=== PATIENT | male | born 1975 | race Caucasian/White ===

== ENCOUNTER 2023-10-07 12:33 | Emergency (ER) | payer OTHER, SELFPAY ==
[2023-10-07 13:06] VITALS: BP 108/69; PULSE 68; RESP 18; TEMP 36.4; O2SAT 98; BMI 29.0
--- NOTE | 2023-10-07 13:23 | ED_ITS ---
HPI - General Adult General Chief complaint: Abdominal Pain Stated complaint: Abdominal pain Time Seen by Provider: 10/07/23 12:38 History of Present Illness HPI narrative: Patient here with periumbilical, dull abdominal pain since Saturday. Poor appetite, cramping, nauseous. No previous abdominal surgeries. Last food intake was 3 pm and liquid was 8 am . 48-year-old man presenting to emergency department with complaint of mid abdominal pain over the last couple of days. Seems to have started about an hour after he ate some Singaporean food. Hit by intense and burning cramping pain he gestures to the upper abdomen/epigastrium. Doubled over with this intensity. Did vomit multiple times. No hematemesis noted. Pulses intense discomfort lasted about 10 minutes. Pain has continued however with persistent burning across the upper abdomen. Yesterday did have some loose stool not actually diarrheal. Is nauseated currently. Abdomen is generally little distended or bloated. No fever. No rashes. Spouse is here quite concerned about potential gallbladder issue. Has never had any food intolerance is in minimal symptoms of heartburn. No family history gallbladder disease that he knows of. Did use to drink alcohol but he has quit some years ago and this seems to have improved his symptoms of dyspepsia as well. Incidentally has noted increased difficulty with urination over the last couple of years. Up multiple times at night. Takes him a while to urinate as well. Spouse is quite concerned regarding his prostate. Wondering if this can be assessed today. Does have an appointment on the , 10 days from now with primary care provider for this matter. Related Data Home Medications Medication Instructions Recorded Confirmed chlorthalidone 25 mg tablet 25 mg PO DAILY PRN 10/07/23 10/07/23 dextroamphetamine-amphetamine 10 1 tab PO DAILY 10/07/23 10/07/23 mg tablet lisinopril 20 mg tablet 20 mg PO DAILY 10/07/23 10/07/23 Previous Rx's Medication Instructions Recorded hydrocodone 5 mg-acetaminophen 325 1 - 2 tab PO Q4-6H PRN pain #12 10/07/23 mg tablet tabs omeprazole 40 mg capsule,delayed 40 mg PO DAILY #15 caps 10/07/23 release ondansetron 4 mg disintegrating 4 mg PO Q4-6H PRN nausea and 10/07/23 tablet vomiting #12 tabs Allergies Allergy/AdvReac Type Severity Reaction Status Date / Time No Known Drug Allergies Allergy Verified 10/07/23 13:02 Review of Systems Status of ROS: Reports: 6 or more systems reviewed and unremarkable except as noted in History and below [facility] Social History Smoking Status: Unknown if ever smoked Second hand tobacco smoke exposure: No Exam Narrative: Exam Narrative: Seems little uncomfortable. He is pleasant. Breathing easily. NAD otherwise. Oropharynx is moist. Lungs are clear. Heart in regular rate and rhythm. Distant. Abdomen present but diminished bowel sounds. Diffusely mildly tender more so though in the epigastrium not exclusive to the right upper quadrant. Without peritoneal signs. Extremities are well perfused. Lower extremities without edema. Const: Vital Signs, click to edit/add: Vital Signs - 24 hr 10/07/23 13:06 Temperature 97.6 F Pulse Rate [Pulse Oximeter] 68 Respiratory Rate 18 Blood Pressure [Ri ght Upper Arm] 108/69 Pulse Oximetry 98 Oxygen Delivery Me thod Room Air Documenting provider has reviewed patient's vital signs: yes Course Vital Signs Vital signs: Initial Vital Signs Temperature 97.6 F 10/07/23 13:06 Temperature Source Temporal Artery Scan 10/07/23 13:06 Pulse Rate 68 10/07/23 13:06 Pulse Rhythm Regular 10/07/23 13:06 Respiratory Rate 18 10/07/23 13:06 Blood Pressure 108/69 10/07/23 13:06 Blood Pressure Mean 82 10/07/23 13:06 Blood Pressure Position Sitting 10/07/23 13:06 Pulse Oximetry 98 10/07/23 13:06 Oxygen Delivery Method Room Air 10/07/23 13:06 Vital Signs Temperature 97.6 F 10/07/23 13:06 Pulse Rate 68 10/07/23 13:06 Respiratory Rate 18 10/07/23 13:06 Blood Pressure 108/69 10/07/23 13:06 Pulse Oximetry 98 10/07/23 13:06 Oxygen Delivery Method Room Air 10/07/23 13:06 Temperature 97.6 F 10/07/23 13:06 Pulse Rate 68 10/07/23 13:06 Respiratory Rate 18 10/07/23 13:06 Blood Pressure 108/69 10/07/23 13:06 Pulse Oximetry 98 10/07/23 13:06 Oxygen Delivery Method Room Air 10/07/23 13:06 Medications Administered Medications: Discontinued Medications Generic Name Dose Route Start Last Admin Trade Name Elieser PRN Reason Stop Dose Admin Sodium Chloride 1,000 mls @ 1,000 mls/hr 10/07/23 13:37 10/07/23 15:40 0.9 % Sodium Chloride 1000 Ml IV 10/07/23 14:36 Not Given .Q1H ONE Lidocaine HCl 7.5 ml 10/07/23 13:46 10/07/23 14:00 Lidocaine Hcl 4 % Top Soln 50 Ml Bottle PO 10/07/23 13:47 7.5 ml ONCE ONE Administration Lidocaine/Aluminum/Magnesium/Simeth 30 ml 10/07/23 13:46 10/07/23 14:00 Mag Hydrox/Aluminum Hyd/Simeth 30 Ml Oral.Susp PO 10/07/23 13:47 30 ml ONCE ONE Administration Ondansetron HCl 4 mg 10/07/23 13:37 10/07/23 15:40 Ondansetron 2 Mg/Ml Inj IVP 10/07/23 13:38 Not Given ONCE ONE Ondansetron HCl 4 mg 10/07/23 15:31 10/07/23 15:39 Ondansetron Odt 4 Mg Tab PO 10/07/23 15:32 4 mg ONCE ONE Administration Medical Decision Making MDM Narrative Medical decision making narrative: The generalized nature of his discomfort suggest more of a gastroenteritis picture. No prodrome to suggest gallbladder disease but certainly possible. Can check labs. I do suspect to be dehydrated. Will give antiemetic and a GI cocktail. Check for pancreatitis. He maintains sobriety. Spouse is quite concerned that he had a gallbladder attack of some sort noting her own history. Both seem alarmed at the intensity and abruptness of onset of his pain along with persistence. As far as his prostate, is disinclined to a check today but spouse is asking if we can get the ball rolling with some labs. Can certainly do PSA check anticipation of this upcoming appointment. IV treatments were declined Was given Zofran and then GI cocktail. Did not seem particularly improved. Maybe a little? Labs reviewed are very normal. PSA ultimately resulted is quite normal at 1.1. I discussed absence of findings and suspect more prolonged gastritis. With continued expressed concerns I do get point of care ultrasound to look at the gallbladder. Ultimately assisted with what I felt was more difficult evaluation by curbsiding integration aide. Gallbladder does not appear to have any pericholecystic fluid. Wall thickness appears normal and a couple small polyps are noted but not near the neck. Normal appearing CBD. This ultrasound appears to have been somewhat reassuring. I suppose it is possible that a gallstone per their concern was passed. I am not sure that this explains the persistent discomfort with pretty normal findings on limited ultrasound and normal labs Would offer imaging further with CT but I think this would be low yield. Had declined IV. Would encourage watchful waiting. See patient discharge plan Lab Data Lab results reviewed: Yes I reviewed the patient's lab results Labs: Lab Results 10/07/23 Range/Units 13:54 WBC 6.35 (4.50-11.00) K/uL RBC 4.75 (4.30-5.90) m/uL Hgb 15.0 (13.5-17.5) gm/dL Hct 43.4 (37.0-53.0) % MCV 91 (80-100) fL MCH 32 (26-34) pg MCHC 35 (32-36) gm/dL RDW Coeff of Radha 13.6 (11.5-15.5) % Plt Count 352 (140-440) K/uL Neut % (Auto) 58.6 (42.0-72.0) % Lymph % (Auto) 29.0 (20-44) % Callahan % (Auto) 8.2 (0.0-11.0) % Eos % (Auto) 3.5 (0.0-7.0) % Baso % (Auto) 0.5 (0.0-3.0) % Neut # (Auto) 3.73 (1.7-7.0) K/uL Lymph # (Auto) 1.84 (0.90-2.90) K/uL Callahan # (Auto) 0.50 (0.00-0.90) K/UL Eos # (Auto) 0.22 (0.00-0.50) K/uL Baso # (Auto) 0.03 (0.00-0.30) K/uL Abs Immat Gran (auto) 0.01 (0.00-0.30) K/uL Imm/Tot Granulo (auto) 0.2 % Sodium 137 (135-149) mmol/L Potassium 4.3 (3.6-5.1) mmol/L Chloride 99 (96-114) mmol/L Carbon Dioxide 27 (20-32) mmol/L Anion Gap 11 (7-15) mEq/L BUN 18 (5-24) mg/dL Creatinine 1.1 (0.5-1.5) mg/dL Estimated Creat Clear 90.14 Estimated GFR 83 ml/min Glucose 112 (60-115) mg/dL Calcium 9.7 (8.4-10.6) mg/dL Total Bilirubin 1.0 (0.1-1.5) mg/dL Direct Bilirubin 0.0 (0.0-0.5) mg/dL AST 27 (12-35) U/L ALT 41 (4-50) U/L Alkaline Phosphatase 57 (40-150) U/L C-Reactive Protein 0.6 (0.5-1.0) mg/dL Total Protein 7.8 (6.0-8.3) g/dL Albumin 4.8 (3.3-5.0) g/dL Lipase 31 (23-300) U/L PSA Screen 1.10 (0.10-4.00) ng/mL Prostate Specific Ag Cancelled % Free PSA Calc Cancelled PSA Free/Total Ratio Cancelled Discharge Plan Discharge Clinical Impression: Gastritis, Abdominal pain Patient Disposition: Home w/ Parent or Adult Condition: Stable Instructions: Gastritis (DC) Additional Instructions: Focus on hydration. Slow advance of diet over the next 24-36 hours. Diluted juices, soup broths, crackers, rice, toast. Be seen/return for marked increase in pain, uncontrolled pain, recurrent vomiting, associated fever, shortness of breath. Follow-up also if not improved in a week. Consider taking omeprazole 40mg daily for 2 weeks of famotidine 20mg twice daily for 2 weeks. (I have sent in omeprozole) Prescriptions: New omeprazole 40 mg capsule,delayed release(DR/EC) 40 mg PO DAILY Qty: 15 0RF hydrocodone-acetaminophen 5-325 mg tablet 1 - 2 tab PO Q4-6H PRN (Reason: pain) Qty: 12 0RF ondansetron 4 mg tablet,disintegrating 4 mg PO Q4-6H PRN (Reason: nausea and vomiting) Qty: 12 0RF No Action lisinopril 20 mg tablet 20 mg PO DAILY dextroamphetamine-amphetamine 10 mg tablet 1 tab PO DAILY chlorthalidone 25 mg tablet 25 mg PO DAILY PRN Follow Up/Referrals: Melo Garica MD [Primary Care Provider] - Stand Alone Forms: [employer] Info Instructions
--- OUTSIDE RECORDS SUMMARY | 2023-10-07 13:50 | XMS_ITS | Clinical Summary ---
Author Name Unknown Organization [facility] Address [place], [place] [address] Care Team Providers Care Sewer Connector Name Role Phone RomaineteMelo smith MD Primary Care Provider + Allergies No known active allergies Medications Medication Sig Dispensed Refills Start Date End Date Status chlorthalidone (HYGROTON) 25 mg tabletIndications: HTN (hypertension) Take 1 Tablet (25 mg) by mouth once daily. Will call when needed 90 Tablet 3 12/19/2022 Active lisinopriL (PRINIVIL; ZESTRIL) 20 mg tabletIndications: HTN (hypertension) Take 1 Tablet (20 mg) by mouth once daily. 90 Tablet 3 12/19/2022 Active dextroamphetamine- amphetamine (ADDERALL XR) 20 mg Extended-Release capsuleIndications :Attention deficit disorder, unspecified hyperactivity presence Take 1 Capsule (20 mg) by mouth every morning. 90 Capsule 0 07/15/2023 Active dextroamphetamine- amphetamine (AdderalL) 10 mg tabletIndications: Attention deficit disorder, unspecified hyperactivity presence Take one in the afternoon if long acting medications fades off. 60 Tablet 0 09/11/2023 Active dextroamphetamine- amphetamine (AdderalL) 10 mg tabletIndications: Attention deficit disorder, unspecified hyperactivity presence Take one in the afternoon if long acting medications fades off. 60 Tablet 0 07/15/2023 Discontinue d(Reorder (E-cancel not sent)) Active Problems Problem Noted Date Diagnosed Date Colon polyp 07/06/2022 Overview: Colonoscopy 06/2022 polyps, repeat in 7 years HTN (hypertension) 10/09/2014 ADD (attention deficit disorder) 06/14/2014 Controlled substance agreement signed 06/14/2014 Resolved Problems Problem Noted Date Diagnosed Date Resolved Date Heel pain 11/12/2011 01/27/2014 Overview: July 2011: jumped off Deck, 240vicodin from 07/26/11 through Oct 2011. Encounters Date Type Department Care Team Description 10/01/2023 Telephone [facility] [address] [place] [address] Melo Garcia MD Referral (urology) 09/12/2023 Telephone [facility] [address] [place] [address] RomaineteMelo smith MD Refill Request 09/11/2023 Refill [facility] [address] [place] [address] RomaineteMelo smith MD Refill Request (dextroamphetamine-amph etamine (AdderalL) 10 mg tablet) 07/15/2023 Refill [facility] [address] [place] [address] RomaineteMelo smith MD Refill Request (dextroamphetamine-amph etamine (ADDERALL XR) 20 mg Extended-Release capsule /dextroamphetamine-amph etamine (AdderalL) 10 mg tablet) from Last 3 Months Immunizations Name Administration Dates Next Due Influenza Virus, Unspecified 06/28/2009,11/28/19 08 Influenza, IIV3 (Age 6-35 mos) 10/30/2013 Influenza, IIV3 (Age >=3 years) 07/10/2012,06/28,10/12/2008 Td (Age >=7 Years) 11/28/2007 Tdap 05/11/2014 Family History Medical History Relation Name Comments Hypertension Father Relation Name Status Comments Father Social History Tobacco Use Types Packs/Day Years Used Date Smoking Tobacco: Former Smokeless Tobacco: Former Chew Quit: 09/24/2021 Tobacco Cessation:Counseling Given: Yes Alcohol Use Standard Drinks/Week Comments Not Currently 0 (1 standard drink = 0.6 oz pur e alcohol) PHQ-2 Answer Date Recorded PHQ-2 TOTAL SCORE 0 02/22/2022 Social Connections Answer Date Recorded Frequency of Communication with Friends and Fami ly 0 10/24/2022 Financial Resource Strain Answer Date R ecorded Difficulty of Paying Living Expenses 3 10/24/2022 Difficulty of Paying Living Expenses Not on file 10/24/2022 Food Insecurity Answer Date Recorded Worried About Running Out of Food in the Last Ye ar 1 10/24/2022 Transportation Needs Answer Date Record ed Lack of Transportation (Medical) 1 10/24/2022 Housing Stability Answer Date Recorded Unable to Pay for Housing in the Last Year 1 10/24/2022 Sex and Gender Information Value Date Recorded Sex Assigned at Not on file Gender Identity Not on file Sexual Orientation Not on file Obstetrics History Last Filed Vital Signs Vital Sign Reading Time Taken Comments Blood Pressure 125/79 12/19/2022 3:27 PM CDT Pulse 95 12/19/2022 3:27 PM CDT Temperature 36.8 ??C (98.3 ??F) 01/03/2021 4:27 PM CD T Respiratory Rate 13 09/04/2022 4:06 PM CUSTOMER SERVICE TELLER Oxygen Saturation 98% 12/19/2022 3:27 PM CDT Inhaled Oxygen Concentration - - Weight 101.3 kg (223 lb 6.4 oz) 12/19/2022 3:27 PM CDT Height 180.6 cm (5' 11.1) 12/19/2022 3:27 PM CD T Body Mass Index 31.07 12/19/2022 3:27 PM CDT Plan of Treatment Upcoming Encounters Date Type Department Care Team (Late st Contact Info) Description 10/17/2023 3:20 PM CUSTOMER SERVICE TELLER Office Visit [facility] [address] [place] [address] Votel, Melo Thibodeaux MD [address] [place] [place] [address] Health Maintenance Due Date Last Done Comments COVID-19 vaccine series (#1) 1975 HIV for age 15-65 1990 Hepatitis C screening for age 18-79 1993 Depression screening for age 12+ 02/22/2023 02/22/2022, 12/02/2020, 11/30/2020, Additional history exists Influenza for age 9-49 05/31/2023 2, 06/28/2011, 06/28/2009, Additional history exists BMI (ht and wt on same day) for age 18+ 12/20/2023 12/19/2022, 10/24/2022, 02/22/2022, Additional history exists Tetanus booster 05/11/2024 05/11/2014, 11/28/2007 Lipids for age 45-75 10/24/2027 10/24/2022, 06/13/2021, 10/15/2019 Colonoscopy through age 75 07/06/202907/06, 07/06/2022, 07/06/2022 Tdap Completed 05/11/2014 Pneumococcal series for age 6-64 Aged Out No longer eligible based on patient's age to complete this topic Care Teams Sewer Connector Relationship Specialty Start Date End Date Votel, Melo Thibodeaux MD [address] [place] [address] PCP - General Family Practice 11/15/11
--- OUTSIDE RECORDS SUMMARY | 2023-10-07 13:50 | XMS_ITS | Encounter Summary ---
Author Name Unknown Organization 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 [address] [place] [phone] Department Of Transportation Examination Department Of Motor Vehicles (Primary Dx) Social History Tobacco Use Types Packs/Day Years Used Date Smoking Tobacco: Never Smokeless Tobacco: Current Chew Nutrition Answer Date Recorded Nutrition: EVOO Fat Source Unknown 11/23 Nutrition: Servings of Fruits/Vegetables per Day Not on file 11/23/2020 Dental Answer Date Recorded Dental: Regular Dentist Unknown 11/23/19 21 Sex and Gender Information Value Date Recorded Sex Assigned at Not on file Gender Identity Not on file Sexual Orientation Not on file documented as of this encounter Last Filed Vital Signs Vital Sign Reading Time Taken Comments Blood Pressure 126/82 11/16/2022 9:04 AM DRY WALL INSTALLER Pulse 79 11/16/2022 9:04 AM DRY WALL INSTALLER Temperature - - Respiratory Rate - - Oxygen Saturation - - Inhaled Oxygen Concentration - - Weight 101 kg (223 lb 8.7 oz) 11/16/2022 9:04 AM DRY WALL INSTALLER Height 186 cm (6' 1.23) 11/16/2022 9:04 AM DRY WALL INSTALLER Body Mass Index 29.31 11/16/2022 9:04 AM DRY WALL INSTALLER documented in this encounter Progress Notes * Gill Sethi P.A.-C. - 11/16/2022 9:15 AM CST Test Design Engineer Medical Examination Junior Wayne is a 47 y.o. 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 The patient reports the following active problems: hypertension & ADHD. Both conditions are well-controlled on his current medication regimen. He did recently have chlorthalidone added to his regimen last month by his PCP. In regard to his ADHD, he is on Adderall 20 mg + 10 mg in the afternoon/evening if the long-acting 20 mg dose fades off. His Adderall regimen has been stable for several years with no side effects or breakthrough symptoms; no concerns per review of charts from PCP. The following portions of the patient's medical history were reviewed and updated as appropriate: allergies, current medications, medical history, social history, surgical history, and problem list Medications: Reviewed and as reported in the CSA paperwork completed 11/16/2022 Review of Systems Pertinent items are noted in HPI. A comprehensive 10+ review of systems was negative apart from that documented in the HPI. Vitals: 11/16/22 0904 BP: 126/82 Pulse: 79 Vision & Hearing: Whisper Test Distance whispered voice detected (ft): 5 of 5 Distance whispered voice detected (ft): 5 of 5 Applicant can recognize and distinguish among traffic control signals and devices showing standard red, green, and [place]umba colors. Applicant meets visual acuity requirement only when wearing corrective lenses. Monocular Vision?: No Hearing requirements were met without using hearing aids Physical Exam: General Appearance: Alert, oriented, healthy-appearing and in no distress. Skin: No suspicious rashes or lesions Head: Normocephalic. Atraumatic. Eyes: Pupils are equally round and reactive to light. Extraocular movements are intact. 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 Color vision is normal. Field of vision is normal Ears: Negative, external ears normal. No tinnitus or disequilibrium. Nose/Sinuses: Nares normal. Septum midline. Mucosa normal. No drainage or sinus tenderness. Oropharynx: Lips, mucosa, and tongue normal, oropharynx normal, no oropharyngeal erythema or exudate. Neck: Negative, without adenopathy; thyroid symmetric, normal size; Lungs: Clear to auscultation, percussion normal, good diaphragmatic excursion, no wheezing or rhonchi. Heart: RRR without murmur, gallop, or rubs. Abdomen: Normal abdominal exam. Bowel sounds normal. Musculoskeletal: Negative. Spine range of motion normal. Muscular strength intact, Range of motion normal in hips, knees, shoulders, and spine. No joint swelling, deformity, or tenderness. Peripheral Pulses: Normal. Neurologic: Gait normal. Patellar reflexes normal and symmetric. No focal motor or sensory abnormalities. Genitalia: Normal. No evidence for inguinal herniation. Lymph Nodes: No lymphadenopathy. Labs: Lab Results Component Value Date SPECGRAV 1.019 11/16/2022 BILIRUBINUR 1+ Small 02/01/2017 RBCU Negative 11/16/2022 GLUCOSEU Negative 11/16/2022 I have reviewed the health history, physical exam, dipstick urinalysis and Titmus. Examination Results: Meets standards, but periodic monitoring required due to hypertension, ADHD. Press Setter qualified only for 1 year. Chronic conditions are stable on his current treatment regimen. Restrictions and Variances: Wearing corrective lenses. Medical examiners certificate completed and printed. Return as needed. Department of Transportation Education Provided. The entire written history and physical is scanned into the electronic medical record. Thank you for letting me be involved in your care. WALL INSTALLER documented in this encounter Plan of Treatment Not on file documented as of this encounter Visit Diagnoses Diagnosis Department Of Transportation Examination Department Of [employer]- Primary documented in this encounter
--- OUTSIDE RECORDS SUMMARY | 2023-10-07 13:50 | XMS_ITS | Referral Summary ---
Author Name Unknown Organization [facility] Address [address] [place] [address] Care Team Providers Care Warehouse Logistics Coordinator Name Role Phone Unavailable Primary Care Provider Unavailabl e Source Comments Patient records contain information from all sites at [facility]. For routine questions regarding patient records, call [phone] during business hours, M-F 8:00 AM - 5:00 PM Central Time. Record requests for emergency care only can be directed to [phone] at any time.[facility] Allergies No known active allergies Medications Medication Sig Dispensed Refills Start Date End Date Status fluticasone propionate (FLONASE) 50 mcg/actuation nasal spray Administer 1 spray into nostril(s). 0 11/30/2020 Active chlorthalidone (HYGROTON) 25 mg tablet Take 25 mg by mouth. 0 10/24/2022 Acti ve amphetamine-dextroam phetamine (ADDERALL XR) 20 mg 24 hr capsule Take 20 mg by mouth. 0 09/18/2022 Acti ve dextroamphetamine-am phetamine (ADDERALL) 10 mg tablet Take in the afternoon if long acting medications fades off. 0 09/17/2022 Active lisinopriL (PRINIVIL,ZESTRIL) 20 mg tablet Take 1 tablet by mouth daily. 0 02/22/2022 Active Active Problems No known active problems Social History Tobacco Use Types Packs/Day Years [...] on file Sexual Orientation Not on file Last Filed Vital Signs Vital Sign Reading Time Taken Comments Blood Pressure 126/82 11/16/2022 9:04 AM CONSULTANT LUXURY AND AUTO. VICE PRESIDENT JAGUAR [employer]AND (EX ) Pulse 79 11/16/2022 9:04 AM CONSULTANT LUXURY AND AUTO. VICE PRESIDENT [employer]UAR [employer] (EX ) Temperature - - Respiratory Rate - - Oxygen Saturation - - Inhaled Oxygen Concentration - - Weight 101 kg (223 lb 8.7 oz) 11/16/2022 9:04 AM CONSULTANT LUXURY AND AUTO. VICE PRESIDENT [employer] (EX ) Height 186 cm (6' 1.23) 11/16/2022 9:04 AM CONSULTANT LUXURY AND AUTO. VICE PRESIDENT [employer]UAR [employer] (EX ) Body Mass Index 29.31 11/16/2022 9:04 AM CONSULTANT LUXURY AND AUTO. VICE PRESIDENT [employer]UAR [employer] (EX ) Plan of Treatment Not on file
--- OUTSIDE RECORDS SUMMARY | 2023-10-07 13:50 | XMS_ITS ---
Author Name Unknown Organization [facility] Address [address] [place] [address] Care Team Providers Care Elastic Yarn Twister Name Role Phone Unavailable Unavailable Unavailable Surgery Details Not on file Complications Check Surgery Details section. Procedure Estimated Blood Loss Check Surgery Details section. Procedure Findings Check Surgery Details section. Procedure Specimens Taken Check Surgery Details section.
--- OUTSIDE RECORDS SUMMARY | 2023-10-07 13:50 | XMS_ITS | Clinical Summary ---
Author Name Unknown Organization [facility] Address [address] [place] [address] Care Team Providers Care Bridge Tender Name Role Phone Unavailable Primary Care Provider Unavailabl e Source Comments Patient records contain information from all sites at [facility]. For routine questions regarding patient records, call [phone] during business hours, M-F 8:00 AM - 5:00 PM Central Time. Record requests for emergency care only can be directed to [phone] at any time.[facility] Allergies No known active allergies Medications [...] Comments Blood Pressure 126/82 11/16/2022 9:04 AM SHOESHINER Pulse 79 11/16/2022 9:04 AM SHOESHINER Temperature - - Respiratory Rate - - Oxygen Saturation - - Inhaled Oxygen Concentration - - Weight 101 kg (223 lb 8.7 oz) 11/16/2022 9:04 AM SHOESHINER Height 186 cm (6' 1.23) 11/16/2022 9:04 AM SHOESHINER Body Mass Index 29.31 11/16/2022 9:04 AM SHOESHINER Plan of Treatment Health Maintenance Due Date Last Done Comments CT Colonography 1975 Cologuard 1975 Colonoscopy 1975 Colorectal Cancer Screening 1975 FIT 1975 HIV Screening 1975 Hepatitis B Vaccines (1 of 3 - 3-dose series) 1975 Hepatitis C Screening 1975 COVID-19 Vaccine (#1) 1975 Depression Screening (Annual PHQ-2) 09/30/2022 Influenza Vaccine (#1) 2023 4, 07/10/2012, 07/10/2012, Additional history exists Creatinine Level (Kidney Function Test) 10/24/2023 10/24/2022, 02/22/2022, 06/13/2021, Additional history exists Potassium Level 10/24/2023 10/24/2022, 01/29, 06/13/2021, Additional history exists Sodium Level 10/24/2023 10/24/2022, 01/29, 06/13/2021, Additional history exists DTaP,Tdap,and Td Vaccines (2 - Td or Tdap) 05/11/2024 05/11/2014, 11/28/2007 Fasting Glucose for Diabetes Screening 10/24/2025 10/24/2022, 02/22/2022, 06/13/2021, Additional history exists Lipid (Cholesterol) Screening 10/24/2027 10/24/2022, 06/13/2021, 10/15/2019 Pneumococcal vaccine (0-64 years) Aged Out No longer eligible based on patient's age to complete this topic
[2023-10-07] MEDS: MAG HYDROX/ALUMINUM HYD/SIMETH 30 ML ORAL.SUSP PO (14:00)
[2023-10-07] MEDS: lidocaine HCL 4 % TOP SOLN 50 ML BOTTLE 7.5 ML PO (14:00)
[2023-10-07 14:08] LABS: Basophils Absolute Auto 0.03 K/uL (0.00-0.30); Basophils Percent Auto 0.5 % (0.0-3.0); Eosinophils Absolute Auto 0.22 K/uL (0.00-0.50); Eosinophils Percent Auto 3.5 % (0.0-7.0); Hematocrit 43.4 % (37.0-53.0); Immature Granulocytes Abs Auto 0.01 K/uL (0.00-0.30); Immature Granulocytes Pct Auto 0.2 %; Lymphocytes Absolute Auto 1.84 K/uL (0.90-2.90); Mean Corpuscular HGB Conc 35 gm/dL (32-36); Mean Corpuscular Hemoglobin 32 pg (26-34); Mean Corpuscular Volume 91 fL (80-100); Monocytes Percent Auto 8.2 % (0.0-11.0); Neutrophils Absolute Auto 3.73 K/uL (1.7-7.0); Neutrophils Percent Auto 58.6 % (42.0-72.0); Platelet Count* 352 K/uL (140-440); RDW Coefficient of Variation % 13.6 % (11.5-15.5); Red Blood Count 4.75 m/uL (4.30-5.90); White Blood Count* 6.35 K/uL (4.50-11.00)
[2023-10-07 14:16] LABS: Slide Review Reflex No
[2023-10-07 14:18] LABS: Albumin* 4.8 g/dL (3.3-5.0); Chloride* 99 mmol/L (96-114); Sodium* 137 mmol/L (135-149)
[2023-10-07 14:19] LABS: Potassium* 4.3 mmol/L (3.6-5.1)
[2023-10-07 14:21] LABS: Creatinine* 1.1 mg/dL (0.5-1.5); Est. Creatinine Clearance* 90.14; Estimated Glomerular Filt Rate 83 ml/min
[2023-10-07 14:22] LABS: Alanine Aminotransferase* 41 U/L (4-50); Alkaline Phosphatase* 57 U/L (40-150); Anion Gap 11 mEq/L (7-15); Aspartate Amino Transferase* 27 U/L (12-35); Blood Urea Nitrogen* 18 mg/dL (5-24); Calcium* 9.7 mg/dL (8.4-10.6); Carbon Dioxide* 27 mmol/L (20-32); Glucose* 112 mg/dL (60-115); Lipase* 31 U/L (23-300); Total Protein* 7.8 g/dL (6.0-8.3)
[2023-10-07 14:25] LABS: C Reactive Protein* 0.6 mg/dL (0.5-1.0)
[2023-10-07] MEDS: ONDANSETRON ODT 4 MG TAB PO (15:39)
--- NOTE | 2023-10-07 15:40 | ED.NURSE ---
Patient refused IV, IV fluids, and IV Zofran. Dr. Hubbard notified @ [phone]. Blood draw performed and taken to lab.
== END 2023-10-07 16:43 | disposition home or self-care (01) ==
PROVIDERS: Emergency Provider Family Medicine; PCP Family Medicine
DX: K29.70 Gastritis, unspecified, without bleeding (principal)
CPT/HCPCS: 36415; 80048; 80076; 81001; 83690; 84153; 84154; 85025; 86140; 99283; 99284; G0103; A9270

== ENCOUNTER 2024-12-13 14:03 | Emergency (ER) | payer OTHER, SELFPAY ==
[2024-12-13] VITALS (8 sets, daily range): BP systolic 132–166; BP diastolic 87–112; PULSE 65–89; RESP 18–20; TEMP 36.1; O2SAT 98–100
--- OUTSIDE RECORDS SUMMARY | 2024-12-13 14:05 | XMS_ITS | Clinical Summary ---
Author Organization [facility] Address [address] [place] [address] Care Team Providers Care Dispatcher Street Department Name Role Phone VotelMelo MD Primary Care Provider + Allergies No known active allergies Medications lisinopriL (PRINIVIL; ZESTRIL) 20 mg tabletIndicatio ns:HTN (hypertension) Take 1 Tablet (20 mg) by mouth once daily. 90 Tablet 3 12/04/19 24 Active dextroamphetami ne-amphetamine (ADDERALL) 10 mg tabletIndicatio ns:Attention deficit disorder, unspecified type Take one tablet by mouth in the afternoon if long acting medications fades off. 90 Tablet 10/05/19 25 Active dextroamphetami ne-amphetamine (ADDERALL XR) 20 mg Extended-Releas e capsuleIndicati ons:Attention deficit disorder, unspecified type Take 1 Capsule (20 mg) by mouth once daily in the morning. 90 Capsule 12/02/19 25 Active dextroamphetami ne-amphetamine (ADDERALL XR) 20 mg Extended-Releas e capsuleIndicati ons:Attention deficit disorder, unspecified type Take 1 Capsule (20 mg) by mouth once daily in the morning. 90 Capsule 09/03/20 24 025 Discontinued Active Problems Problem Noted Date Diagnosed Date Colon polyp 07/06/2022 Overview (07/06/2022): Colonoscopy 06/2022 polyps, repeat in 7 years HTN (hypertension) 10/09/2014 ADD (attention deficit disorder) 06/14/2014 Controlled substance agreement signed 06/14/2014 Resolved Problems Problem Noted Date Diagnosed Date Resolved Date Heel pain 11/12/2011 01/27/2014 Overview (11/12/2011): July 2011: jumped off Deck, 240vicodin from 07/26/11 through Oct 2011. Encounters Date Type Department Care Team Description 12/01/2024 Refill [facility] [address] [place] [address] Melo Garcia MD Refill Request (Dextroamphetamine-amph etamine) 12/01/2024 Refill [facility] [address] [place] [address] Melo Garcia MD Refill Request (dextroamphetamine-amph etamine (ADDERALL XR) 20 mg Extended-Release capsule/) 11/23/2024 Telephone [facility] [address] [place] [address] Griselda Mejia MD Testing (Needs 1 year follow up US abdomen limited to check gallbladder polyp) 10/05/2024 Refill [facility] [address] [place] [address] Melo Garcia MD Refill Request (Dextroamphetamine-amph etamine) 10/05/2024 Refill [facility] [address] [place] [address] Melo Garcia MD Refill Request (dextroamphetamine-amph etamine (AdderalL) 10 mg tablet) from Last 3 Months Immunizations Immunization Administration Dates Next Due Influenza Virus, Unspecified [...] Answer Date Recorded PHQ-2 TOTAL SCORE 0 10/17/2023 Social Connections Answer Date Recorded Frequency of Communication with Friends and Fami ly Not on file 10/31/2023 Financial Resource Strain Answer Date R ecorded [...] Recorded Sex Assigned at Not on file Legal Sex Male 7:34 AM STOPPING BUILDER Gender Identity Not on file Sexual Orientation Not on file Obstetrics History Last Filed Vital Signs Vital Sign Reading Time Taken Comments Blood Pressure 114/74 12/31/2023 2:30 PM CDT Pulse 84 12/31/2023 2:30 PM CDT Temperature 36.8 C (98.3 F) 01/03/2021 4:27 PM CDT Respiratory Rate 13 09/04/2022 4:06 PM STOPPING BUILDER Oxygen Saturation 100% 12/31/2023 2:30 PM CDT Inhaled Oxygen Concentration - - Weight 103.4 kg (228 lb) 12/31/2023 2:30 PM CDT Height 180.3 cm (5' 11) 12/04/2023 3:17 PM STOPPING BUILDER Body Mass Index 31.8 12/04/2023 3:17 PM STOPPING BUILDER Plan of Treatment Health Maintenance Due Date Last Done Comments HIV for age 15-65 1990 Hepatitis C screening for age 18-79 1993 Tetanus booster 05/11/2024 05/11/2014, 11/28/2007 COVID-19 vaccine series ( season) 2024 Influenza Vaccine (#1) 2024 4, 07/10/2012, 06/28/2011, Additional history exists Depression screening for age 12+ 10/17/2024 10/17/2023, 02/22/2022, 12/02/2020, Additional history exists BMI (ht and wt on same day) for age 18+ 12/03/2024 12/04/2023, 10/17/2023, 12/19/2022, Additional history exists Lipids for age 45-75 12/03/2028 12/04/2023, 10/24/2022, 06/13/2021, Additional history exists Colonoscopy through age 75 07/06/202907/06, 07/06/2022, 07/06/2022 Tdap Completed 05/11/2014 Pneumococcal series for age 6-49 Aged Out No longer eligible based on patient's age to complete this topic Procedures Procedure Name Priority Date/Time Associated Diagnosis Comments LIPID PANEL W REFLEX MEASURED LDL Routine 12/04/2023 3:46 PM STOPPING BUILDER HTN (hypertension) COLONOSCOPY SCREENING Routine 07/06/2022 8:16 AM CDT Screening for colon cancer from Last 3 Months or Most Recently Relevant to Health Maintenance Results * (ABNORMAL) LIPID PANEL W REFLEX MEASURED LDL (12/04/2023 3:46 PM STOPPING BUILDER) CHOLESTEROL,TOTAL 220(H) 100 - 199 mg/dL 12/05/2023 2:08 PM STOPPING BUILDER [facility] [employer] [facility] Comment: Cholesterol, Total Reference Ranges Desirable <200 mg/dL Borderline 200-239 mg/dL High >=240 mg/dL TRIGLYCERIDES 223(H) <150 mg/dL 12/05/2023 2:08 PM STOPPING BUILDER [facility] [employer] [facility] HDL CHOLESTEROL 46 >40 mg/dL 2:08 PM STOPPING BUILDER [facility] NON-HDL CHOLESTEROL 174(H) <145 mg/dl 12/05/2023 2:08 PM STOPPING BUILDER [facility] CHOL/HDL RATIO 4.78(H) <4.50 12/05/2023 2:08 PM STOPPING BUILDER [facility] LDL CHOLESTEROL 129 <=130 mg/dL 12/05/2023 2:08 PM STOPPING BUILDER [facility] VLDL CHOLESTEROL 45(H) <=30 mg/dL 12/05/2023 2:08 PM STOPPING BUILDER [facility] PROVIDER ORDERED STATUS RANDOM 12/05/2023 2:08 PM STOPPING BUILDER [facility] Blood BLOOD SPECIMEN / Unknown Venipuncture / Unknown 12/04/2023 3:46 PM STOPPING BUILDER 12/04/2023 3:47 PM STOPPING BUILDER us Melo Garcia MD CHEMISTRY Final Re sult [facility] [address] [place] [place] [address], [place] * COLONOSCOPY (07/06/2022 8:44 AM CDT) 07/06/2022 8:44 AM CDT Narrative Transcriptions Arnol Simon MD - 07/06/2022 9:57 AM CDT Patient Name: Jonah Wayne Procedure Date: 07/06/2022 Gender: Male Date of : 1975 Admit Type: Outpatient Procedure: Colonoscopy Proceduralist: Arnol Simon MD , Manuela Guerra (Nurse), Margarita Juarez (Nurse) Referring MD: Melo Garcia Indications/Pre-Op Diagnosis: Screening for colorectal malignant neoplasm, This is the patient's first colonoscopy Medications: Fentanyl 100 micrograms IV, Midazolam 4 mgIV, The level of sedation administered wasmoderate Procedure Description: The patient had risks, benefits and alternatives explained to andgave informed consent. The patient had a stable cardiopulmonary status and judged an adequate candidate for conscious sedation. The endoscope -[id number] was passed through the anus andadvanced to the cecum, identified by appendiceal orifice and ileocecal valve.The colonoscopy was performed without difficulty. The patient toleratedthe procedure well. The quality of the bowel preparation was good. The ileocecal valve, appendiceal orifice, and rectum were photographed. Complications: No immediate complications. Estimated Blood Loss & Specimen: Estimated blood loss: none. Specimen collected - Yes and sent to Laboratory Findings: The perianal and digital rectal examinations were normal. A 4 mm polyp was found in the ascending colon. The polyp was sessile. The polyp was removed with a cold snare. Resection was complete, butthe polyp tissue was not retrieved. A 1 mm polyp was found in the rectum. The polyp was sessile. Thepolyp was removed with a cold snare. Resection was complete, but the polyp tissue was not retrieved. The exam was otherwise without abnormality. Impressions/Post-Op Diagnosis: - One 4 mm polyp in the ascending colon, removed with a cold snare. Complete resection. Polyp tissue not retrieved. - One 1 mm polyp in the rectum, removed with a cold snare. Complete resection. Polyp tissue not retrieved. - The examination was otherwise normal. Recommendation: - Patient has a contact number available for emergencies. The signsand symptoms of potential delayed complications were discussed with the patient. Return to normal activities tomorrow. Written discharge instructions were provided to the patient. - Resume previous diet. - Continue present medications. - Repeat colonoscopy in 7 years for surveillance. Moderate Sedation: A time out was performed before the procedure. Moderate (conscious) sedation was administered by the endoscopy nurse and supervised bythe endoscopist. The following parameters were monitored: oxygensaturation, heart rate, blood pressure, EKG, CO2, respiratory rate, adequacy of pulmonary ventilation and reponse to care. Please refer to the patient's medical record flowsheets and nursing notes for moderate sedation details. Total physician intraservice time was 19 minutes. Arnol Simon MD 07/06/2022 9:56:57 AM This report has been signed electronically. Note Initiated On: 07/06/2022 8:44 AM Procedure Code(s): --- Professional --- 43783, Colonoscopy, flexible; with removalof tumor(s), polyp(s), or other lesion(s) bysnare technique Diagnosis Code(s): --- Professional --- Z12.11, Encounter for screening formalignant neoplasm of colon D12.2, Benign neoplasm of ascending colon D12.8, Benign neoplasm of rectum CPT copyright 2020 [employer]. All rights reserved. The codes documented in this report are preliminary and upon stopperer assembler reviewmay be revised to meet current compliance requirements. Scope In: 9:35:23 AM Scope Withdrawal Time 0 hours 11 minutes 21 seconds Scope Out: 9:51:29 AM Arnol Simon MD PROCEDURE ORD Final Res ult from Last 3 Months or Most Recently Relevant to Health Maintenance Insurance [facility] Care Teams Dispatcher Street Department Relationship Specialty Start Date End Date Votel, Melo Thibodeaux MD [address] [place] [address] PCP - General Family Practice 11/15/11
[2024-12-13] MEDS: fentaNYL 100 MCG/2 ML inj 50 MCG IVP (14:20)
--- OUTSIDE RECORDS SUMMARY | 2024-12-13 14:28 | XMS_ITS | Clinical Summary ---
Author Organization [facility] Address [address] [place] [address] Care Team Providers Care Electronic Service Technician Name Role Phone VotelMelo MD Primary Care [...] Type Department Care Team Description 12/01/2024 Refill [facility] [address] [place] [address] Melo Garcia MD Refill Request (Dextroamphetamine-amph etamine) 12/01/2024 Refill [facility] [address] [place] [address] Melo Garcia MD Refill Request (dextroamphetamine-amph etamine (ADDERALL XR) 20 mg Extended-Release capsule/) 11/23/2024 Telephone [facility] [address] [place] [address] Griselda Mejia MD Testing (Needs 1 year follow up US abdomen limited to check gallbladder polyp) 10/05/2024 Refill [facility] [address] [place] [address] Melo Garcia MD Refill Request (Dextroamphetamine-amph etamine) 10/05/2024 Refill [facility] [address] [place] [address] Melo Garcia MD Refill Request (dextroamphetamine-amph etamine [...] on file Legal Sex Male 7:34 AM SOLARIS ADMINISTRATOR Gender Identity Not on file Sexual Orientation Not on file Obstetrics History Last Filed Vital Signs Vital Sign Reading Time Taken Comments Blood Pressure 114/74 12/31/2023 2:30 PM CDT Pulse 84 12/31/2023 2:30 PM CDT Temperature 36.8 C (98.3 F) 01/03/2021 4:27 PM CDT Respiratory Rate 13 09/04/2022 4:06 PM SOLARIS ADMINISTRATOR Oxygen Saturation 100% 12/31/2023 2:30 PM CDT Inhaled Oxygen Concentration - - Weight 103.4 kg (228 lb) 12/31/2023 2:30 PM CDT Height 180.3 cm (5' 11) 12/04/2023 3:17 PM SOLARIS ADMINISTRATOR Body Mass Index 31.8 12/04/2023 3:17 PM SOLARIS ADMINISTRATOR Plan of Treatment Health Maintenance Due Date [...] REFLEX MEASURED LDL Routine 12/04/2023 3:46 PM SOLARIS ADMINISTRATOR HTN (hypertension) COLONOSCOPY SCREENING Routine 07/06/2022 8:16 AM CDT Screening for colon cancer from Last 3 Months or Most Recently Relevant to Health Maintenance Results * (ABNORMAL) LIPID PANEL W REFLEX MEASURED LDL (12/04/2023 3:46 PM SOLARIS ADMINISTRATOR) CHOLESTEROL,TOTAL 220(H) 100 - 199 mg/dL 12/05/2023 2:08 PM SOLARIS ADMINISTRATOR [facility] [employer] [facility] Comment: Cholesterol, Total Reference Ranges Desirable <200 mg/dL Borderline 200-239 mg/dL High >=240 mg/dL TRIGLYCERIDES 223(H) <150 mg/dL 12/05/2023 2:08 PM SOLARIS ADMINISTRATOR [facility] [employer] [facility] HDL CHOLESTEROL 46 >40 mg/dL 2:08 PM SOLARIS ADMINISTRATOR [facility] NON-HDL CHOLESTEROL 174(H) <145 mg/dl 12/05/2023 2:08 PM SOLARIS ADMINISTRATOR [facility] CHOL/HDL RATIO 4.78(H) <4.50 12/05/2023 2:08 PM SOLARIS ADMINISTRATOR [facility] LDL CHOLESTEROL 129 <=130 mg/dL 12/05/2023 2:08 PM SOLARIS ADMINISTRATOR [facility] VLDL CHOLESTEROL 45(H) <=30 mg/dL 12/05/2023 2:08 PM SOLARIS ADMINISTRATOR [facility] PROVIDER ORDERED STATUS RANDOM 12/05/2023 2:08 PM SOLARIS ADMINISTRATOR [facility] Blood BLOOD SPECIMEN / Unknown Venipuncture / Unknown 12/04/2023 3:46 PM SOLARIS ADMINISTRATOR 12/04/2023 3:47 PM SOLARIS ADMINISTRATOR us Melo Garcia MD CHEMISTRY Final Re sult [facility] [address] [place] [address], [place] * COLONOSCOPY (07/06/2022 8:44 AM CDT) [...] adequate candidate for conscious sedation. The endoscope -[id number] was passed through the anus andadvanced to [...] 8:44 AM Procedure Code(s): --- Professional --- 99839, Colonoscopy, flexible; with removalof tumor(s), polyp(s), or other lesion(s) bysnare technique Diagnosis Code(s): --- Professional --- Z12.11, Encounter for screening formalignant neoplasm of colon D12.2, Benign neoplasm of ascending colon D12.8, Benign neoplasm of rectum CPT copyright 2020 [employer]. All rights reserved. The codes documented in this report are preliminary and upon evp reviewmay be revised to meet current compliance requirements. Scope In: 9:35:23 AM Scope Withdrawal Time 0 hours 11 minutes 21 seconds Scope Out: 9:51:29 AM Arnol Simon MD PROCEDURE ORD Final Res ult from Last 3 Months or Most Recently Relevant to Health Maintenance Insurance [facility] Care Teams Electronic Service Technician Relationship Specialty Start Date End Date Votel, Melo Thibodeaux MD [address] [place] [address] PCP - General Family Practice 11/15/11
--- NOTE | 2024-12-13 14:41 | ED.GENADULT ---
HPI - General Adult General Chief complaint: Extremity Pain/Injury, Upper Stated complaint: might have lost fingers Time Seen by Provider: 12/13/24 14:07 Source: patient Mode of arrival: ambulatory Limitations: no limitations History of Present Illness HPI narrative: 49-year-old male presenting today concerned about a finger amputation after his miter saw slipped. Denies other injury. Related Data Home Medications ?Medication ?Instructions ?Recorded ?Confirmed chlorthalidone 25 mg tablet 25 mg PO DAILY PRN 10/07/23 10/07/23 dextroamphetamine-amphetamine 10 1 tab PO DAILY 10/07/23 10/07/23 mg tablet lisinopril 20 mg tablet 20 mg PO DAILY 10/07/23 10/07/23 Previous Rx's ?Medication ?Instructions ?Recorded hydrocodone 5 mg-acetaminophen 325 1 - 2 tab PO Q4-6H PRN pain #12 10/07/23 mg tablet tabs omeprazole 40 mg capsule,delayed 40 mg PO DAILY #15 caps 10/07/23 release ondansetron 4 mg disintegrating 4 mg PO Q4-6H PRN nausea and 10/07/23 tablet vomiting #12 tabs Allergies Allergy/AdvReac Type Severity Reaction Status Date / Time No Known Drug Allergies Allergy Verified 10/07/23 13:02 Review of Systems Status of ROS: Reports: 6 or more systems reviewed and unremarkable except as noted in History and below [facility] Social History Smoking Status: Former smoker Do you use any of these nicotine containing products: None Second hand tobacco smoke exposure: No How often do you have a drink containing alcohol: monthly or less AUDIT-C Alcohol total score: 1 Non-prescribed substance use: denies use service: No Exam Narrative: Exam Narrative: Well-nourished well-developed patient in obvious distress. Alert and oriented x3. Answers questions appropriately. HEENT: Normocephalic atraumatic. Pupils are equally round reactive to light. Extraocular muscles are intact. Conjunctivae are moist without any icterus noted. Moist mucous membranes. 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 Amputation occurs through the DIP. There is 1 active arterial bleed. Skin: Well perfused. Const: Vital Signs, click to edit/add: Vital Signs - 24 hr 12/13/24 14:24 12/13/24 14:34 Temperature 97.0 F L Pulse Rate [Pulse Oximeter] 89 78 Respiratory Rate 20 18 Blood Pressure [Ri ght Upper Arm] 132/91 H 145/95 H Pulse Oximetry 98 99 Oxygen Delivery Me thod Room Air Room Air Course Course ED Course: Finger tourniquet was applied to control bleeding. Digital block was done with 2% lidocaine. Patient was also given fentanyl 50 mcg IV. Tourniquet was then removed and wound was irrigated and explored. Arterial bleed was tied off with 3-0 Ethilon. Pressure applied to the area with good hemostasis. Fingertip was then placed back in place, splint placed a pressure dressing applied. Patient remained hemodynamically stable. In the meantime, we did call [facility] who was not able to take care of this patient at this time. Therefore we paged the hand surgeon at [facility]. 30 minutes later, we paged them again. Tetanus was updated and IV Zosyn x1 was given while in the ED. Dr. Gallegos - plastic surgeon, agreed to transfer. Also spoke to ER MD, Dr. Anderson who agrees to receive the patient. Vital Signs Vital signs: Initial Vital Signs Temperature 97.0 F L 12/13/24 14:24 Temperature Source Temporal Artery Scan 12/13/24 14:24 Pulse Rate 89 12/13/24 14:24 Respiratory Rate 20 12/13/24 14:24 Blood Pressure 132/91 H 12/13/24 14:24 Blood Pressure Mean 104 12/13/24 14:24 Blood Pressure Position Supine 12/13/24 14:24 Pulse Oximetry 98 12/13/24 14:24 Oxygen Delivery Method Room Air 12/13/24 14:24 Vital Signs Temperature 97.0 F L 12/13/24 14:24 Pulse Rate 89 12/13/24 14:24 Respiratory Rate 20 12/13/24 14:24 Blood Pressure 132/91 H 12/13/24 14:24 Pulse Oximetry 98 12/13/24 14:24 Oxygen Delivery Method Room Air 12/13/24 14:24 Temperature 97.0 F L 12/13/24 14:24 Pulse Rate 78 12/13/24 14:34 Respiratory Rate 18 12/13/24 14:34 Blood Pressure 145/95 H 12/13/24 14:34 Pulse Oximetry 99 12/13/24 14:34 Oxygen Delivery Method Room Air 12/13/24 14:34 Medications Administered Medications: Discontinued Medications Generic Name Dose Route Start Last Admin Trade Name Freq PRN Reason Stop Dose Admin Diphtheria/Tetanus/Acell Pertussis 0.5 ml 12/13/24 14:44 12/13/24 14:49 Tetanus/Diphth/Pertussis 0.5 Ml Syringe IM 12/13/24 14:45 0.5 ml .ONCE ONE Administration Fentanyl 50 mcg 12/13/24 14:44 12/13/24 14:20 Fentanyl 100 Mcg/2 Ml Inj IVP 12/13/24 14:45 50 mcg ONCE ONE Administration Piperacillin Sod/Tazobactam 100 mls @ 200 mls/hr 12/13/24 14:44 12/13/24 14:53 Sod 3.375 gm/ Sodium Chloride IVPB 12/13/24 14:45 200 mls/hr ONCE ONE Administration Lidocaine HCl 20 ml 12/13/24 14:44 12/13/24 14:53 Lidocaine Hcl 2 % Multidose 20 Ml Vial INJECTION 12/13/24 14:45 20 ml ONCE ONE Administration Medical Decision Making MDM Narrative Medical decision making narrative: Almost complete fingertip amputation-transferred to [facility] Discharge Plan Discharge Clinical Impression: Partial traumatic amputation of finger through phalanx Patient Disposition: Xfer Other Discharge Location: [facility] Condition: Stable Prescriptions: No Action lisinopril 20 mg tablet 20 mg PO DAILY dextroamphetamine-amphetamine 10 mg tablet 1 tab PO DAILY chlorthalidone 25 mg tablet 25 mg PO DAILY PRN omeprazole 40 mg capsule,delayed release(DR/EC) 40 mg PO DAILY Qty: 15 0RF hydrocodone-acetaminophen 5-325 mg tablet 1 - 2 tab PO Q4-6H PRN (Reason: pain) Qty: 12 0RF ondansetron 4 mg tablet,disintegrating 4 mg PO Q4-6H PRN (Reason: nausea and vomiting) Qty: 12 0RF Stand Alone Forms: MyHealth Info Instructions
[2024-12-13] MEDS: TETANUS/DIPHTH/PERTUSSIS 0.5 ML SYRINGE IM (14:49)
[2024-12-13] MEDS: lidocaine HCL 2 % MULTIDOSE 20 ML VIAL INJECTION (14:53)
[2024-12-13] MEDS: PIPERACILLIN/TAZOBACTAM 3.375 GM in 0.9 % SODIUM CHLORIDE Mini-bag 100 ML IVPB (14:53)
== END 2024-12-13 15:19 | disposition other institution (70) ==
PROVIDERS: Emergency Provider Family Medicine; PCP Family Medicine
DX: S68.120A Partial traumatic metacarpophalangeal amputation of right index finger, initial encounter (principal); W27.0XXA Contact with workbench tool, initial encounter; Z23 Encounter for immunization
CPT/HCPCS: 90471; 90715; 96365; 96375; 99284; 99285; J2543; J3010

== ENCOUNTER 2024-12-13 15:00 | Outpatient (CLI) | payer OTHER, SELFPAY | END 2024-12-13 15:01 | disposition home or self-care (01) | LOC: AMB 12-14 15:26 | PROVIDERS: PCP Family Medicine; Visit Provider Internal Medicine | DX: S68.620A Partial traumatic transphalangeal amputation of right index finger, initial encounter (principal) | CPT/HCPCS: A0425; A0427 ==